=== PATIENT | male | born 1985 | race Caucasian/White ===

== ENCOUNTER 2017-10-24 12:28 | Observation (INO) ==
[2017-10-24] MEDS ORDERED: SALINE FLUSH 10ml SYRINGE IVF PRN (12:32)
[2017-10-24] MEDS ORDERED: NS 1,000 ML IV ONE ×2 (12:34→13:45)
--- NOTE | 2017-10-24 12:35 | Emergency Department Report ---
Altered Mental Status HPI - General Stated Complaint: HEAT EXPOSURE Time Seen by Provider: 10/24/17 12:32 Source: patient, EMS Mode of arrival: EMS Limitations: altered mental status - History of Present Illness HPI narrative: Patient is a 31-year-old male presents emergency room for evaluation of altered mental status, heat exposure. Patient was out golfing today, per family patient has been working outside, they were helping tear down apartment. Patient will golfing suddenly became altered and confused, and then had some apparent shaking possible seizure-like activity. EMS was called, patient was acutely altered on arrival. Patient's fluids were started and brought to the emergency room. On arrival patient GCS 11, does attempt to follow commands, however nonverbal eyes are open. Patient will not track with eyes. Vital signs are within defined limits. Stat head CT; 0.5 Ativan ordered on arrival - Related Data Home Medications Medication Instructions Recorded Confirmed Aspirin/Acetaminophen/Caffeine 2 tab PO TID PRN 10/24/17 10/24/17 [Excedrin Extra Strength Caplet] Cetirizine HCl [All Day Allergy] 10 mg PO HS 10/24/17 10/24/17 Allergies Allergy/AdvReac Type Severity Reaction Status Date / Time No Known Allergies Allergy Verified 10/24/17 15:14 Review of Systems Limitations: ROS unobtainable due to patient's medical condition Constitutional: Reports: fever, chills PFSH Medical History Updates: Denies - Social History Smoking status: Never smoker Substance use type: does not use Alcohol intake frequency: does not drink Physical Exam - General General appearance: alert, obtunded - Head Head exam: normocephalic - ENT ENT exam: Present: normal oropharynx, mucous membranes moist, TM's normal bilaterally - Neck Neck exam: Present: trachea midline. Absent: tenderness - Chest Chest inspection: Present: symmetric chest wall rise. Absent: tenderness, rash - Respiratory Respiratory exam: Present: normal lung sounds bilaterally. Absent: respiratory distress, wheezes, stridor - Cardiovascular Cardiovascular exam: Present: regular rate, normal rhythm, normal heart sounds - Abdominal Exam Abdominal exam: Present: soft, normal bowel sounds. Absent: distention, tenderness - Skin Skin exam: Present: dry - Neurological Exam Neurological exam: Absent: alert, oriented X3 Altered Mental Status - [facility] Narrative Medical decision making narrative: Patient slowly improved his symptoms, over the course of about 2 hours patient is back to baseline although does state he has some tingling in his fingers and toes and is very tired at this time. Patient CT scan is negative laboratories are consistent with either severe dehydration or seizure. Given patient having a history of this in the past, did have a similar episode 2 years ago while they were building a house in the middle of some her, suspect patient has heatstroke, not history of epilepsy. Discuss case with Dr. Martino, will admit to observation status [facility] for further evaluation and treatment. - Differential Diagnosis Likely: alcoholic intoxication, altered mental status, delirium, dementia, hypoglycemia, hyponatremia, subarachnoid hemorrhage, sepsis - Medical Records Attestation: I reviewed the patient's medical records. - Lab Data Attestation: I reviewed the patient's lab results. Result diagrams: 10/24/17 12:44 10/24/17 12:44 - Radiology Data Attestation: I reviewed the patient's radiology results. CT head: No acute intracranial abnormality Disposition Clinical Impression: Heatstroke Qualifiers: Encounter type: initial encounter Qualified Code(s): T67.0XXA - Heatstroke and sunstroke, initial encounter Disposition: 02 [place] [facility] [place] Stable Prescriptions: No Action Cetirizine HCl [All Day Allergy] 10 mg PO HS Aspirin/Acetaminophen/Caffeine [Excedrin Extra Strength Caplet] 2 tab PO TID PRN PRN Reason: Pain Referrals: Eusebio Arndt MD [Primary Care Provider] - - Seen By: physician
[2017-10-24] MEDS ORDERED: ONDANSETRON 4 MG/2 ML INJECTION IVP ONE (15:11)
--- NOTE | 2017-10-24 15:56 | History & Physical Report ---
History of Present Illness Date: 10/24/17 Chief complaint: vomiting, collapse HPI: Patient is a 31 yo who is brought in by EMS b/c he collapsed on the golf course. He was reportedly on the 14th hole and had started feeling pain in his R arm (in relation to a previous injury) and started feeling nauseated. He then went to the bushes to vomit and collapsed. Friends state he was completely out for at least a minute before they could get him to respond. They carried him back to the golf cart and took him to the club house where he was sitting on a chair and started to fall forward. His friend noted that he was very rigid when he caught him and had noted some foam coming from his mouth. EMS was suspicious for seizure. In ED he had a neg CT head and slowly became more responsive. He was given 2 L of NS and 0.5 mg IV ativan. He reports he is regularly working out in the heat, so what he was doing today was actually less strenuous than usual. 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 He hasn't been feeling very well the past few days (was feeling nauseated and fatigued) but felt a little better today. Had a headache this am which isn't usual for him. Also reports for the past several months he'll have 2-3 days of not feeling well described as nausea and fatigue. This occurs approx every other week. He had a baseball injury to his R elbow at age 14 which resulted in injury to the ulnar nerve. He opted not to have surgical repair to the elbow and has seen several doctors in regard to his ongoing pain. Dr Malloy did a "neurectomy" in the wrist b/c he was having probs with his hand spasming and causing significant pain. Since that surgery, sxs have been better, but he states that when his R arm starts bothering him, he will typically just not feel well. He also notes 2-3x a wk he'll wake up and can't move the R arm and he has burning sensation in his fingers. This has been happening the past 2-3 mos. He 's also noted pain in his neck and has trouble moving his head when he has the pain. THinks this is r/t his "arm problem" but has never had MRI of neck. Describes what sounds like NCS and EMG's. 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 Laughlin Family History: F - healthy M - HTN, thyroid prob 2 girls - healthy Family History: As Above - Social History Smoking status: Never smoker Substance use type: does not use Alcohol intake frequency: other (1-2x a week. Averages 3 beers a week.) Housing: house Household members: family Current occupational status: employed ([employer]) Social history: PCP - Dr Eusebio Arndt Medications Home Medications Medication Instructions Recorded Confirmed Type Aspirin/Acetaminophen/Caffeine 2 tab PO TID PRN 10/24/17 10/24/17 History [Excedrin Extra Strength Caplet] Cetirizine HCl [All Day Allergy] 10 mg PO HS 10/24/17 10/24/17 History Allergies Allergy/AdvReac Type Severity Reaction Status Date / Time No Known Allergies Allergy Verified 10/24/17 15:14 Exam Vital Signs: Temperature 97.7 F 10/24/17 12:30 Pulse Rate 81 10/24/17 12:46 Respiratory Rate 16 10/24/17 12:46 Blood Pressure 128/60 10/24/17 12:46 Pulse Oximetry 100 10/24/17 12:46 - Constitutional Present: no acute distress, well nourished, well developed - Routine HEENT Exam Head: Present: normocephalic, atraumatic Eye: Present: EOMI, PERRL, normal accommodation ENT: Present: mucous membranes moist, oropharynx clear Comments: lips are dry. Blurred and "dark" vision in the R eye compared to L eye. - Routine Neck Exam Present: supple. Absent: lymphadenopathy, thyromegaly - Routine Respiratory Exam Present: CTA bilaterally. Absent: wheezes - Routine Cardiovascular Exam Present: RRR, murmur (L sternal border) - Routine Abdominal Exam Present: soft, normoactive bowel sounds. Absent: tenderness, distended - Routine Extremities Exam Present: no edema, normal capillary refill - Routine Skin Exam Present: dry, warm - Routine Neurological Exam Present: alert, oriented X3, CN II-XII intact, moving all extremities, normal tone, normal speech. 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 b/c reports that will cause pain - Routine Psychiatric Exam Present: normal affect, cooperative Results - Labs CBC & Chem 7: 10/24/17 12:44 10/24/17 12:44 Labs: Laboratory Tests 10/24/17 12:44 Total Bilirubin 1.50 H Total Creatine Kinase 192 H Total Protein 8.7 H Albumin 5.3 H Laboratory Tests 10/24/17 14:33 Urine pH 5.5 Ur Specific Novi 1.025 Urine Protein Trace A Urine Glucose (UA) Negative Urine Ketones 3+ A Urine Occult Blood Negative Urine Nitrate Negative Urine Urobilinogen 0.2 Ur Leukocyte Esterase Negative - Imaging and Cardiology CT scan - head Additional comments: neg report per ED physician Assessment and Plan Assessment and Plan: Assessment Heat stroke - based on altered mental status following the syncopal event and elevation in CPK (Core temp never measured) Syncopal episode - likely result of heat stroke. R/o seizure vs other Leukocytosis Elevated CPK Dehydration Elevated prolactin R ulnar neuropathic pain r/t previous injury Nausea- acute on chronic Plan Admit for OBS and rehydration. Pt was given 2L NS in the ED. Will continue maintenance fluids at 150cc/hr. Repeat CPK, CBC and CMP in am. Consider neuro consult, mouna given the vision changes in the R eye. Consider MRI brain. Protonix 40mg IV given c/o nausea and for GI ppx SCD's DVT ppx Full Code. PCP - Dr Eusebio Arndt DVT Prophylaxis: SCD's GI Prophylaxis: Protonix Resuscitation Status: Full Code - Physician Narrative Physician: Isabella Martino MD Narrative: Date: 10/24/17 Time: 1844 I have independently evaluated and examined this patient. I reviewed the chart, the patient's history, and the HOOKING MACHINE OPERATOR/PA's documented findings as above. We discussed and formulated the assessment and plan as above with additions as below: Jose was seen with several family members at bedside; when seen late this afternoon he reported continued numbness in the third, fourth, and fifth fingers of his right hand which is common but resolution of visual symptoms described earlier and family report he is responding normally. He is able to provide more history now than he did in the emergency room indicating good fluid intake while golfing today but increased pain in the right arm leading to intense nausea with diaphoresis and repetitive emesis--> syncope followed by altered mental status and subsequent increased motor tone and possible seizure activity. EMS reported normal temperature and vital signs. NAD, alert Decreased sensation distally in the ulnar aspect of the third right digit, fourth finger, and fifth finger on the right hand; mild soft tissue swelling along the medial aspect of the right elbow. MAEW, motor tone normal. Lower extremity sensation to touch intact. All documented temperatures have been normal; patient denies excessive heat exposure and reports good oral intake of fluids today. Heat stroke unlikely based on available evidence. Recurrent/increasing difficulty with pain right arm-suspect patient had a vagal episode triggering syncope and subsequent seizure activity today. Laboratory abnormalities including CPK/procalcitonin/decreased bicarbonate/ ketonuria consistent with seizure and or dehydration irrespective of cause. Continue IV fluids. Bilirubin and ALT both slightly elevated-repeat in a.m. CT head reviewed by myself-negative. Discussed with Dr. Acosta. EMS records reviewed. Hospital Course Summary Disclaimer: The visit summary below is not to be considered part of the above Progress Note. Hospital Course: 10/24/17 Admit for OBS and rehydration. Pt was given 2L NS in the ED. Will continue maintenance fluids at 150cc/hr. Repeat CPK, CBC and CMP in am. Consider neuro consult, mouna given the vision changes in the R eye. Consider MRI brain. Protonix 40mg IV given c/o nausea and for GI ppx SCD's DVT ppx Full Code. PCP - Dr Eusebio Arndt
[2017-10-24 16:05] VITALS: BMI 26.6
[2017-10-24] MEDS: PANTOPRAZOLE 40 MG INJECTION IVP SCH (17:45)
[2017-10-24] MEDS: NS 1,000 ML IV SCH (17:45)
[2017-10-25] MEDS: NS 1,000 ML IV SCH ×2 (00:22→07:16)
[2017-10-25] MEDS ORDERED: ACETAMINOPHEN 325 MG TABLET PO PRN (04:20)
[2017-10-25 07:27] VITALS: RESP 14
--- NOTE | 2017-10-25 07:39 | CT Scan Report ---
Indication: sudden altered mental status inability to converse PROCEDURE: CT head/brain wo con: Encounter: Initial Comparison: None Technique: Axial CT images through the head were performed without contrast. Iterative Reconstruction dose reducing technique was utilized. FINDINGS: The ventricles are of normal size, shape, and configuration for the patient's age. There is no evidence of acute intracranial hemorrhage, midline displacement, or mass effect. The CT attenuation of the brain parenchyma is normal within the cerebellum, brain stem, and cerebral hemispheres. The tympanic cavities and mastoid air cells are free of appreciable disease. There are no definite fractures of the skull base, calvarium, or visualized portion of the midface. Minimal right ethmoid and sphenoid sinus disease IMPRESSION: No CT evidence of acute intracranial abnormality. There is a preliminary report by [facility]. .
[2017-10-25] MEDS: PANTOPRAZOLE 40 MG INJECTION IVP SCH (09:07)
--- NOTE | 2017-10-25 12:16 | Progress Note ---
- Date 10/25/17 Subjective: Jose is seen this morning while resting in bed with his at the bedside. He reports he "feels like s#!*", but admits he feels better today then he did at time of admission. He continues to have limited memory of his admission and prior to admission. This morning he complains of occipital headache and pain with eye movement, which is worse with lateral eye movement. He denies any visual changes, blurred vision or double vision. He also complains of right lateral paraspinous neck pain that is tender with palpation and movement as well as central chest pain that is reproducible with palpation. He believes his chest pain is secondary to sternal rub from EMS as he reports that EMS was strongly rubbing his sternum and telling him to breath during transport. He denies any difficulty breathing, abdominal pain, nausea, vomiting or dysuria. His appetite is fair and urinary output is adequate. Objective Vital signs: Temperature 96.0 F L 10/25/17 07:27 Pulse Rate 63 10/25/17 08:00 Respiratory Rate 14 10/25/17 07:27 Blood Pressure 122/63 10/25/17 07:27 Pulse Oximetry 98 10/25/17 07:27 Rhythm: Normal Sinus Rhythm Height/Weight/BMI: Height 5 ft 8 in Weight 180 lb 1.883 oz Body Mass Index 26.6 Comments: Sitting up in bed with his at the bedside. - Constitutional Present: no acute distress, well nourished, well developed, cooperative - Routine HEENT Exam Head: Present: normocephalic, atraumatic Eye: Present: EOMI, PERRL, normal accommodation. Absent: conjunctival icterus, nystagmus ENT: Present: mucous membranes moist, oropharynx clear Comments: Pain with EMO, worse with lateral gazes. Mild tenderness to right lateral neck along paraspinous region that is worse with movement and palpation. - Routine Respiratory Exam Present: accessory muscle use, CTA bilaterally. Absent: respiratory distress, wheezes - Routine Cardiovascular Exam Present: RRR, S1, S2 - Routine Abdominal Exam Present: soft, normoactive bowel sounds, non distended, non tender - Routine Extremities Exam Present: no edema, non tender, full ROM, pulses intact, normal capillary refill - Routine Back/Spine/Pelvis Exam Back/Spine: Present: full ROM, paraspinal tenderness (right cervical), pain with flexion (cervical, mild), pain with rotation (cervical, mold). Absent: vertebral tenderness, kyphosis Comments: No meningismus or nuchal rigidity. - Routine Musculoskeletal Exam Musculoskeletal: Present: no clubbing or cyanosis, normal strength, moving extremities well - Routine Skin Exam Present: intact, dry, warm Comments: Afebrile. - Routine Neurological Exam Present: alert, oriented X3, CN II-XII intact, moving all extremities, hearing grossly intact, normal speech. Absent: sensory deficit, motor deficit, altered mental status, facial asymmetry - Routine Lymphatic Exam Lymphatic: Absent: lymphedema - Routine Psychiatric Exam Present: normal affect, cooperative, good insight, good judgment Results - Labs CBC & Chem 7: 10/25/17 04:17 10/25/17 04:17 - Impressions Date of Exam: 10/24/17 Type of Exam(s): CT head/brain wo con Reason for Exam(s): sudden altered mental status inability to converse FINDINGS: The ventricles are of normal size, shape, and configuration for the patient's age. There is no evidence of acute intracranial hemorrhage, midline displacement, or mass effect. The CT attenuation of the brain parenchyma is normal within the cerebellum, brain stem, and cerebral hemispheres. The tympanic cavities and mastoid air cells are free of appreciable disease. There are no definite fractures of the skull base, calvarium, or visualized portion of the midface. Minimal right ethmoid and sphenoid sinus disease IMPRESSION: No CT evidence of acute intracranial abnormality. Assessment and Plan (1) Syncope Status: Acute Assessment and Plan: Assessment Syncopal episode - vasovagal suggested historically Possible seizure, following syncope Heat exposure-heatstroke unlikely Muscle spasm Leukocytosis Elevated CPK Dehydration Elevated prolactin R ulnar neuropathic pain r/t previous injury Nausea- acute on chronic Plan - 10/25/17 Patient reports that he is feeling better today but continues to complain of occipital headache and pain with EOMs. Will obtain MRI brain for further evaluation. Neurologic exam normal. No nuchal rigidity or meningismus. CT head on admission unremarkable. Unknown if patient hit his head prior to arrival. Leukocytosis resolved. Mild anemia (hgb 12.8) noted most likely dilutional. Slight hyperglycemia (118) and new hypocalcemia (Ca 8.3). LFTs normalized. CK trending down at 109. Continue NS 50cc/hr for gentle hydration as patient is tolerating oral intake well. Patient and family initially requested neurology follow up in [place]. Will discuss further with patient and family following MRI once results are available. Hopeful for discharge later this afternoon, depending on MRI results and patient condition. DVT Prophylaxis: SCD's GI Prophylaxis: Protonix Resuscitation Status: Full Code - Time spent with patient Time with patient PN: 30 minutes - Physician Narrative Physician: Isabella Martino MD Narrative: Date: 10/25/17 Time: 2119 I have independently evaluated and examined this patient. I reviewed the chart, the patient's history, and the CYBER ANALYST/PA's documented findings as above. We discussed and formulated the assessment and plan as above with additions as below: Jose was seen this morning and again mid afternoon after MRI completed. He describes some increased discomfort in the right side of his neck worsened with positional changes and palpation over the right trapezius suggesting spasm. Ocular symptoms described above improved after he slept for several hours during the day and by midday he denied any ongoing visual symptoms. On initial evaluation muscle symptoms as above with palpable tenderness in the right trapezius and increased discomfort in the right neck and upper back with rotation of neck to the right and right chin drop movements. EOMI; sensation intact except chronic sensory changes ulnar right digits. MRI head reviewed by myself and report reviewed. No acute or chronic changes on study other than minor sinus disease. Stable for discharge; Janina has updated Dr. Arndt who will see patient in follow-up in approximately one week and assist with further neurology evaluation as indicated. Patient has increased muscle spasm today as anticipated based on what I believe was a vasovagal syncopal event yesterday followed by probable tonic seizure activity. History today indicates EMS or dairy bacteriologist/stave bolt equalizer stimulated the patient with sternal rub during a time he was minimally responsive triggering some sternal discomfort reported today. CPK improving. Hospital Course Summary Disclaimer: The visit summary below is not to be considered part of the above Progress Note. Hospital Course: 10/24/17 Admit for OBS and rehydration. Pt was given 2L NS in the ED. Will continue maintenance fluids at 150cc/hr. Repeat CPK, CBC and CMP in am. Consider neuro consult, mouna given the vision changes in the R eye. Consider MRI brain. Protonix 40mg IV given c/o nausea and for GI ppx SCD's DVT ppx Full Code. PCP - Dr Eusebio Arndt Plan - 10/25/17 Patient reports that he is feeling better today but continues to complain of occipital headache and pain with EOMs. Will obtain MRI brain for further evaluation. Neurologic exam normal. No nuchal rigidity or meningismus. CT head on admission unremarkable. Unknown if patient hit his head prior to arrival. Leukocytosis resolved. Mild anemia (hgb 12.8) noted most likely dilutional. Slight hyperglycemia (118) and new hypocalcemia (Ca 8.3). LFTs normalized. CK trending down at 109. Continue NS 50cc/hr for gentle hydration as patient is tolerating oral intake well. Patient and family initially requested neurology follow up in [place]. Will discuss further with patient and family following MRI once results are available. Hopeful for discharge later this afternoon, depending on MRI results and patient condition.
[2017-10-25] MEDS ORDERED: SALINE FLUSH 10ml SYRINGE ONE (12:42)
--- NOTE | 2017-10-25 13:16 | Magnetic Resonance Report ---
Indication: syncope/seizure, headache PROCEDURE: MR head/brain wo/w con: Encounter: Initial Comparisons: Head CT dated October 24, 2017 Technique: Multiplanar, multisequence, MR imaging of the head with and without contrast was acquired. Contrast: 16 mL of ProHance FINDINGS: The ventricles are of normal size, shape, and contour for the patient's age. The brain stem, cerebellum, and cerebral hemispheres have a normal morphologic appearance as well as MR signal intensity on all pulse sequences. Following intravenous administration of contrast, no areas of abnormal enhancement are evident. There are no areas of restricted diffusion to suggest an acute infarct. There is no evidence of an intracranial mass lesion, intracranial hemorrhage, or hydrocephalus. The visualized portions of the orbits, calvarium and skull base demonstrate no significant abnormality. Small mucus retention cyst in the right sphenoid sinus. Minimal ethmoid air cell mucosal thickening. IMPRESSION: No acute intracranial abnormality. .
[2017-10-25 16:21] VITALS: BP 119/69; PULSE 60; TEMP 96; O2SAT 97
--- NOTE | 2017-10-25 21:31 | Discharge Summary ---
Discharge Information Date of admission: 10/24/17 15:34 Anticipated date of discharge: 10/25/17 Attending Physician: Isabella Martino MD Primary care physician: Eusebio Arndt MD - Discharge Diagnosis (1) Syncope Status: Acute Syncopal episode - vasovagal suggested by history Possible seizure, following syncope Heat exposure-heatstroke unlikely Muscle spasm Leukocytosis Elevated CPK Dehydration Elevated prolactin R ulnar neuropathic pain r/t previous injury Nausea- acute on chronic - Laboratory Labs: On admission 10/24/17-hemoglobin 14.9, INR 1.02, HCO3 16, creatinine 1.1, bilirubin 1.5, ALT 70, prolactin 19.1, CPK 192. Urinalysis positive for +3 ketones; urine drug screen negative. 10/25/17 04:17 10/25/17 04:17 On date of discharge liver enzymes all normal, CPK 109. - Radiology Radiology: Noncontrast CT of the head on 10/24/17: The ventricles are of normal size, shape, and configuration for the patient's age. There is no evidence of acute intracranial hemorrhage, midline displacement, or mass effect. The CT attenuation of the brain parenchyma is normal within the cerebellum, brain stem, and cerebral hemispheres. The tympanic cavities and mastoid air cells are free of appreciable disease. There are no definite fractures of the skull base, calvarium, or visualized portion of the midface. Minimal right ethmoid and sphenoid sinus disease IMPRESSION: No CT evidence of acute intracranial abnormality. ----- MRI of the head with and without contrast on 10/25/17: The ventricles are of normal size, shape, and contour for the patient's age. The brain stem, cerebellum, and cerebral hemispheres have a normal morphologic appearance as well as MR signal intensity on all pulse sequences. Following intravenous administration of contrast, no areas of abnormal enhancement are evident. There are no areas of restricted diffusion to suggest an acute infarct. There is no evidence of an intracranial mass lesion, intracranial hemorrhage, or hydrocephalus. The visualized portions of the orbits, calvarium and skull base demonstrate no significant abnormality. Small mucus retention cyst in the right sphenoid sinus. Minimal ethmoid air cell mucosal thickening. IMPRESSION: No acute intracranial abnormality. History of Present Illness HPI: Patient is a 31 yo who is brought in by EMS b/c [place]. He was reportedly on the 14th hole and had started feeling pain in his R arm (in relation to a previous injury) and started feeling nauseated. He then went to the bushes to vomit and collapsed. Friends state he was completely out for at least a minute before they could get him to respond. They carried him back to the golf cart and took him to the club house where he was sitting on a chair and started to fall forward. His friend noted that he was very rigid when he caught him and had noted some foam coming from his mouth. EMS was suspicious for seizure. In ED he had a neg CT head and slowly became more responsive. He was given 2 L of NS and 0.5 mg IV ativan. He reports he is regularly working out in the heat, so what he was doing today was actually less strenuous than usual. 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 He hasn't been feeling very well the past few days (was feeling nauseated and fatigued) but felt a little better today. Had a headache this am which isn't usual for him. Also reports for the past several months he'll have 2-3 days of not feeling well described as nausea and fatigue. This occurs approx every other week. He had a baseball injury to his R elbow at age 14 which resulted in injury to the ulnar nerve. He opted not to have surgical repair to the elbow and has seen several doctors in regard to his ongoing pain. Dr Malloy did a "neurectomy" in the wrist b/c he was having probs with his hand spasming and causing significant pain. Since that surgery, sxs have been better, but he states that when his R arm starts bothering him, he will typically just not feel well. He also notes 2-3x a wk he'll wake up and can't move the R arm and he has burning sensation in his fingers. This has been happening the past 2-3 mos. He 's also noted pain in his neck and has trouble moving his head when he has the pain. Thinks this is r/t his "arm problem" but has never had MRI of neck. Describes what sounds like NCS and EMG's. Objective Vital signs: Temperature 96 F L 10/25/17 16:00 Pulse Rate 60 10/25/17 16:00 Respiratory Rate 14 10/25/17 16:00 Blood Pressure 119/69 10/25/17 16:00 Pulse Oximetry 97 10/25/17 16:00 NAD, alert EOMI Tender to palpation across right trapezius; increased discomfort right arm and neck with rotation and flexion of the neck but there is full range of motion at the neck and no nuchal rigidity/meningismus. Decreased sensation to light touch in the third, fourth, and fifth digits of the right hand as previously present Rhythm: Normal Sinus Rhythm Height/Weight/BMI: Height 1.73 m Weight 81.7 kg Body Mass Index 26.6 Hospital Course This is a general summary of the patient's hospital course. For more details refer to the complete medical record. Hospital course: Mr. Arce was hospitalized after developing acute nausea/vomiting while golfing on the October. Nausea and vomiting developed abruptly after he described increasing pain in his right arm and was associated with profuse diaphoresis. Vomiting was followed by syncope as described in the history of present illness. Tonic seizure activity without clonus was suspected based on EMS reports. Noncontrast CT head was obtained on admission and was unremarkable. EMS in the ER provider questioned possible heatstroke however the patient describes daily heat exposure often in excess of that he experienced on the date of admission prior to onset of presenting symptoms. He was not drinking alcohol and was maintaining good intake of fluids prior to development of GI symptoms. Patient was hydrated throughout the hospitalization and urine output was good throughout. History was more suggestive of increased pain triggering a vagal event followed by hypotension with seizure or seizure-like activity. There is no recurrent seizure during the hospitalization and neurological exam was notable only for sensory loss in the ulnar aspect of the right hand which patient reports is chronic. He described increasing difficulty with right hand symptoms for several months but has not yet pursued evaluation of the symptoms. On 10/25 he had increased muscle spasm as might be anticipated following a seizure but he was not interested in muscle relaxants for management. Gentle stretches and warm /cold packs were discussed for management. MRI head was obtained to exclude potential seizure focus and no abnormalities were identified other than minor chronic sinus disease. Dr. Arndt was updated on patient's symptoms and will see the patient in follow- up to determine if additional evaluation of the right arm or further evaluation of potential seizures is indicated. Patient was felt stable for discharge later in the day on 10/25. No additional problems were encountered during the hospital stay. Time spent with patient: discharge greater than 30 minutes Resuscitation Status: Full Code Discharge Plan - Discharge Disposition Discharge Date: 10/25/17 Disposition: 01 Discharged Home, Self-Care *Condition: Stable Reason For Visit (Visit label in EMR): seizure/heat exposure - Discharge Medications *Discharge Medications: No Action Cetirizine HCl [All Day Allergy] 10 mg PO HS Aspirin/Acetaminophen/Caffeine [Excedrin Extra Strength Caplet] 2 tab PO TID PRN PRN Reason: Pain - Discharge Packet/Instructions *Diet: regular *Activity: as tolerate *Pain Management/Treatment: tylenol as needed per package directions *Wound Care: not applicable Additional Instructions: schedule f/u appointment with Dr. Arndt in the next week to re-evaluate current symptoms and ongoing difficulty with your right arm *Expected Signs/Symptoms: Continue difficulty with numbness and weakness in the right arm; increased muscle spasm/tightness in general following yesterday's events *Notify Physician if: Additional nausea or vomiting, passing out, or anything that suggests another seizure-like event *During Business Hours Contact: Dr. Arndt office *After Business Hours Contact: Dr. Arndt office-will connect you to the after hour number *Pending Lab/Results: No Pending Lab - Referrals/Follow Up *Referrals/Follow Up: Eusebio Arndt MD [Primary Care Provider] - - Patient Handouts Patient Handouts: Syncope (GEN), Epilepsy (DC) - Dismissal Complete Discharge Instructions are:: Complete Physician Narrative - Narrative Attestation Narrative: Date: 10/25/17 Time: 2127
== END 2017-10-25 18:37 | disposition home or self-care (01) ==
LOC: EDHOLD 12:28 → ED 12:28 → MED 15:55
PROVIDERS: ADMIT Internal Medicine; ATTEND Internal Medicine